=== PATIENT | female | born 1945 | race Caucasian/White ===

== ENCOUNTER 2017-10-23 14:13 | Outpatient (CLI) | payer MEDICARE, BC ==
--- NOTE | 2017-10-23 15:39 | RAD ---
TWO VIEW CHEST: INDICATION: Progressive cough. Methotrexate administration. FINDINGS: The lungs reveal no lobar consolidation or effusion. There is no evidence of pneumothorax. Cardiome diastinal silhouette is within normal limits of size. Mediastinal clips are seen at the right upper quadrant. Osseous degenerative change is represent. There are subtle punctate high-density nodules overlying the chest bilaterally favoring granulomatous calcification. Correlation with prior imaging would be helpful to confirm stability. IMPRESSION: No focal consolidation. POS: [facility]
== END 2017-10-23 14:14 | disposition home or self-care (01) ==
LOC: SCSRAD 14:13
PROVIDERS: ATTEND Physician Assistant
DX: Z02.9 Encounter for administrative examinations, unspecified (principal)
CPT/HCPCS: 71046

== ENCOUNTER 2019-01-30 08:59 | Outpatient (CLI) | payer MEDICARE, BC ==
--- NOTE | 2019-01-30 11:26 | ULT ---
HEPATIC DOPPLER EVALUATION: Swanson scale and Doppler color flow imaging performed with spectral analysis. CLINICAL INDICATION: Elevated liver function enzymes. FINDINGS: The imaged portal and hepatic venous systems demonstrate patency and appropriate direction of flow. Arterial waveforms of the hepatic and splenic arteries are documented. The splenic vein is patent. No focal hepatic lesion. Gallbladder is surgically absent. IMPRESSION: 1. Normal Doppler evaluation of the liver. 2. Status post cholecystectomy. POS: [facility]
== END 2019-01-30 09:00 | disposition home or self-care (01) ==
LOC: SCSULT 08:59
PROVIDERS: ATTEND Physician Assistant Medical
DX: R94.5 Abnormal results of liver function studies (principal); R14.3 Flatulence; H10.9 Unspecified conjunctivitis; Z90.49 Acquired absence of other specified parts of digestive tract; Z85.038 Personal history of other malignant neoplasm of large intestine
CPT/HCPCS: 76705

== ENCOUNTER 2025-05-27 09:22 | Outpatient (CLI) | payer MEDICARE | END 2025-05-27 09:23 | disposition home or self-care (01) | LOC: SCSBT 09:22 | PROVIDERS: ATTEND Internal Medicine Rheumatology | DX: M54.50 Low back pain, unspecified (principal); L40.59 Other psoriatic arthropathy; M47.816 Spondylosis without myelopathy or radiculopathy, lumbar region; M43.16 Spondylolisthesis, lumbar region; M47.812 Spondylosis without myelopathy or radiculopathy, cervical region; M50.30 Other cervical disc degeneration, unspecified cervical region; M43.12 Spondylolisthesis, cervical region; M43.22 Fusion of spine, cervical region; M85.852 Other specified disorders of bone density and structure, left thigh | CPT/HCPCS: 72052; 72100; 77080 ==